=== PATIENT | female | born 1955 | race Caucasian/White ===

== ENCOUNTER → 2020-06-06 | Outpatient (CLI) | payer MEDICARE, OTHER ==
--- NOTE | 2020-06-06 12:15 | DIREP ---
PROCEDURE:CT HEAD OR BRAIN W/O CONTRAST COMPARISON:None. INDICATIONS:HEADACHE TECHNIQUE:CT images were created without intravenous contrast. The study was reviewed on brain, subdural and bone windows. FINDINGS: VENTRICLES:The ventricles are normal in size and configuration. Slight prominence of the extra-axial spaces consistent with mild atrophy. Basal ganglia and thalamus are normal. Minimal periventricular white matter changes noted. CEREBRUM:Normal cerebral morphology with appropriate pleitez white matter differentiation. No evidence for unilateral hyperdense MCA sign is seen. No hyperdense venous sinus, effacement of sulci, loss of insular cortex or loss of lenticular nucleus is seen. No acute infarct, bleed or mass lesion is seen. No acute or chronic epidural, subdural subarachnoid hemorrhage is seen. No edema, midline shift or increased intracranial pressure is seen. CEREBELLUM:No posterior fossa infarcts or mass lesions are seen. BRAINSTEM:No focal ischemic changes in the renata, midbrain or the peduncle spit BASAL CISTERNS:Negative. HEMORRHAGE:No MASS LESION:No ACUTE INFARCT:No SKULL:Normal. SINUSES:The left maxillary sinus, shows evidence for expansion with a large soft tissue density completely opacifying the left maxillary sinus and a small 1 also seen on the right side. The soft tissue densities likely represent retention cyst, polyp or a mucocele. OTHER:None CONCLUSION:Bilateral maxillary sinus disease with soft tissue densities, differential diagnosis as above. Minimal atrophy, no acute infarct, bleed or mass lesion is seen. No focal infarcts are seen in the posterior fossa, basal ganglia or thalamus. Dictated by: Deshawn Schneider MD on 06/06/2020 at 12:12 PM
== END | disposition home or self-care (01) ==
LOC: RAD 11:42
PROVIDERS: ATTEND Nurse Practitioner Family
DX: G93.89 Other specified disorders of brain (principal); R51 Headache; R42 Dizziness and giddiness
CPT/HCPCS: 70450